=== PATIENT | male | born 1950 | race Caucasian/White ===

== ENCOUNTER 2016-06-21 14:13 | Emergency (ER) | payer OTHER ==
[~2016-06-21] VITALS: Ht 188 cm; Wt 131.8 kg
[2016-06-21 14:19] VITALS: BP 157/127; PULSE 133; RESP 23; O2SAT 95
[2016-06-21] MEDS ORDERED: 0.9% Sodium Chloride 1,000 ML IV ONE (14:25)
[2016-06-21] MEDS ORDERED: Albuterol-Ipratropium 3 mL Inhalation Solution NEB ONE (14:25)
[2016-06-21] MEDS ORDERED: MethylprednisoLONE Sodium Succinate 62.5 mg/mL 2 mL Inj IVPUSH ONE (14:25)
[2016-06-21] MEDS ORDERED: Albuterol 2.5 mg/3 mL Inhalation Solution NEB ONE ×2 (14:25)
[2016-06-21 14:33] VITALS: BP 116/43; PULSE 121; RESP 18; O2SAT 95
--- NOTE | 2016-06-21 14:33 | DRSVH ---
PROCEDURE: X-RAY CHEST ONE VIEW, PORTABLE ([id number]) INDICATIONS: RESPIRATORY FAILURE TECHNIQUE: One view of the chest was acquired. COMPARISON: [facility], CR, XR CHEST 1V PORTABLE, 02/15/2016, 0:29 AM. FINDINGS: Surgical changes and devices: None. Lungs and pleura: No pleural effusions or pneumothorax. Lungs are clear. Mediastinum: Mediastinal contours appear normal. Heart size is normal. Bones and chest wall: No suspicious bony lesions. Overlying soft tissues appear unremarkable. IMPRESSION: No acute cardiopulmonary disease process. Dictated by: Shana Mendiola MD, PhD on 06/21/2016 at 14:32 Approved by: Shana Mendiola MD, PhD on 06/21/2016 at 14:32
[2016-06-21 14:43] LABS: BASOPHILS % (AUTO) 1.6 % (0-3); EOSINOPHILS % (AUTO) 4.9 % (0-5); MONOCYTES % (AUTO) 7.3 % (4-12); Mean Corpuscular Hemoglobin 31.7 pg (27.0-35.0); Mean Corpuscular Volume 91.9 fL (81-100); NEUTROPHILS % (AUTO) 44.5 % (40-74); Platelet Count 340 bil/L (150-400)
[2016-06-21] MEDS ORDERED: BUDE0.5A HHN (14:44)
[2016-06-21] MEDS ORDERED: ALBU8.5H2 INHALATION ×2 (14:44→20:16)
--- NOTE | 2016-06-21 14:49 | ED.REPORT ---
HPI-Dyspnea / Wheezing Date of Service Jun 21, 2016 ED Provider: Pavel Mas DO Patient is a 65 year old male with an unspecified "lung issue" who presents to the ED via EMS complaining of SOB 30 minutes prior to arrival. Associated symptoms include cough. He denies chest pain, fever, or any other symptoms. He was prescribed an inhaler for his "lung issue" when it was diagnosed one year ago. En route he was wheezing and stopped moving room air while on a nebulizer. He arrived on CPAP. He was 80 on room are and 90 on CPAP en route. He currently uses his inhaler and Pulmicort. Nursing Notes Stated Complaint: SOB Chief Complaint: Respiratory Complaints Nursing Notes Reviewed: Yes Allergies: Coded Allergies: No Known Allergies (Unverified , 06/21/16) Scheduled Albuterol HFA (Proair HFA) 8.5 Gm Hfa.aer.ad 2 PUFFS INHALATION Q4H Budesonide (Pulmicort) 0.5 Mg/2 Ml Ampul.neb. 0 HHN BID Pt unsure of dose. General Time Seen by MD: 14:24 Chief Complaint Shortness of breath Hx Obtained From: Patient, EMS Arrived By: Ambulance Sudden in Onset?: Yes Onset Occurred: 16 - 30 minutes ago Symptom Duration: Since onset Past Medical History Past Medical History Notes: PCP Sharon Barcenas Past Medical History Non-specific "lung issue" Past Surgical History R lower leg Smoking History Former Smoker Social History Alcohol Use: Denies alcohol use Ambulatory Status Independent Review of Systems Constitutional: Denies: Fever Respiratory: Reports: Non-productive cough, Shortness of breath Cardiovascular: Denies: Chest pain Complete sys rev & neg: except as marked. Physical Exam Initial Vital Signs Vital Signs (First) Date Time Temp Pulse Resp B/P Pulse Ox O2 Delivery O2 Flow Rate FiO2 06/21/16 14:19 36.3 133 23 157/127 95 BiPAP 06/21/16 15:02 50 Initial VS: Reviewed Head / Eyes: Atraumatic, Normocephalic Abdomen / GI: Soft, Non-tender Skin: Warm, Dry Neurologic: Alert, Oriented, Nonfocal Psychiatric: Mood/affect normal, Behavior normal, Normal thought content General/Constitutional: Awake, Alert, Well developed Hypertensive Neck: Atraumatic Diminished Breath Sounds: Positive: Decreased R (Severely ) Wheezing / Retractions: Positive: Wheezing expiratory Rales / Rhonchi: Positive: Rhonchi diffuse tachypneic on CPAP Heart Rate / Rhythm: Positive: Tachycardia Interpretation & Diagnostics Lab Results Interpretation Result Diagram: 06/21/16 1348 06/21/16 1348 Test 06/21/16 13:48 White Blood Count 13.3th/mm3 (3.8-10.1) Red Blood Count 4.80mil/mm3 (4.40-5.80) Hemoglobin 15.2g/dL (13.8-17.2) Hematocrit 44.1% (41.0-50.0) Mean Corpuscular Volume 91.9fL (81-100) Mean Corpuscular Hemoglobin 31.7pg (27.0-35.0) Mean Corpuscular Hemoglobin Concent 34.5% (32.0-37.0) Red Cell Distribution Width 13.2% (12.3-15.4) Platelet Count 340bil/L (150-400) Neutrophils (%) (Auto) 44.5% (40-74) Lymphocytes (%) (Auto) 41.1% (14-46) Monocytes (%) (Auto) 7.3% (4-12) Eosinophils (%) (Auto) 4.9% (0-5) Basophils (%) (Auto) 1.6% (0-3) Sodium Level 142mEq/L (134-144) Potassium Level 4.1mEq/L (3.5-5.2) Chloride Level 103mEq/L (97-108) Carbon Dioxide Level 22mmol/L (18-29) Blood Urea Nitrogen 15mg/dL (8-27) Creatinine 1.02mg/dL (0.76-1.27) Estimat Glomerular Filtration Rate 78mL/min (>59) Glucose Level 145mg/dL (60-99) Lactic Acid Level 2.6mmol/L (0.4-2.0) Calcium Level 8.8mg/dL (8.5-10.1) Magnesium Level 2.1mg/dL (1.6-2.6) Total Bilirubin 0.3mg/dL (0.0-1.2) Aspartate Amino Transf (AST/SGOT) 40U/L (0-50) Alanine Aminotransferase (ALT/SGPT) 62U/L (0-44) Alkaline Phosphatase 90U/L (25-160) Troponin T < 0.010ug/L (0.0-0.011) Pro-B-Type Natriuretic Peptide 82.59pg/mL (0-210) Total Protein 8.0g/dL (6.4-8.4) Albumin 4.5g/dL (3.4-5.0) Procalcitonin 0.07ng/mL (See Comment) ECG Interpretation ECG Interpretation: Sinus tachy rate 113 probable left atrial enlargement Time: 15:25 Interpreted by: ED physician X-Ray Chest Interpretation Chest Xray Interpretation: IMPRESSION: No acute cardiopulmonary disease process. Dictated by: Shana Mendiola MD, PhD on 06/21/2016 at 14:32 Approved by: Shana Mendiola MD, PhD on 06/21/2016 at 14:32 View: Portable, 1 view Interpretation / Wet Read by: Interpret - Radiologist Re-Eval/Medical Decision Med Decision/Clinical Course Hypoxic respiratory failure due to asthma prior to arrival presents on CPAP, now able to tolerate room air after large volume nebulizer and a trial on CPAP. Care is transferred to Dr. Triana for further observation as the patient declines admission and will be monitored. Re-Evaluation/Progress #1: Time of Eval: 15:31 Re-Evaluation/Progress Note: Rechecked. Patient claims he has been using his inhaler "60 times a day" for the past 48 hours without relief. Discussed desire for admission. Patient understands and agrees with plan. All questions addressed at this time. Re-Evaluation/Progress #2: Time of Eval: 16:08 Re-Evaluation/Progress Note: Patient is now requesting to go home. Discussed desire for observation before discharge. Patient understands and agrees with plan. All questions addressed at this time. Counseled Regarding: Diagnosis, Need for follow-up, When/why to return to ED Discharge & Departure Shift Change Sign-Out Patient Care Transferred: Yes Discussed Complaint(s): Yes Laboratory Evaluation: Back, reviewed by me Imaging Studies: Done, reviewed by me Transfer of care to [facility] at 1609 Impression: Primary Impression: Asthma exacerbation Additional Impression: Hypoxia Disposition: Home Discharge Condition All VS Reviewed: Yes Condition: Stable Care Transferred to: [facility] Care Transferred at: 16:22 Scribe Attestation Portions of this note were transcribed by Sherly Pace. I, Dr. Mas personally performed the history, physical exam and medical decision-making; I reviewed and confirmed the accuracy of the information in the transcribed note. Signed by: Sherly Pace 06/21/16, 1541 Pavel Mas DO Jun 21, 2016 14:49 SHERLY PACE Jun 21, 2016 14:58
[2016-06-21 15:02] VITALS: RESP 14; O2SAT 99
[2016-06-21 15:05] LABS: Magnesium 2.1 mg/dL (1.6-2.6)
[2016-06-21 15:07] LABS: TROPONIN T < 0.010 ug/L (0.0-0.011)
[2016-06-21 16:32] VITALS: BP 141/62; PULSE 115; RESP 16; O2SAT 98
[2016-06-21] MEDS ORDERED: PRE20 PO (20:16)
[2016-06-21 20:30] VITALS: BP 122/64; PULSE 107; RESP 18; O2SAT 95
== END 2016-06-21 20:32 | disposition home or self-care (01) ==
LOC: EDBD 14:13 → SED 14:13
DX: J45.901 Unspecified asthma with (acute) exacerbation (principal); J96.91 Respiratory failure, unspecified with hypoxia; J98.4 Other disorders of lung; Z87.891 Personal history of nicotine dependence
CPT/HCPCS: 36415; 71010; 80053; 82308; 83605; 83735; 83880; 84484; 85025; 87040; 87633; 93005; 94644; 94660; 96361; 96374; 99285; J2930; J7030; J7613; J7620